=== PATIENT | female | born 1985 | race Asian ===

== ENCOUNTER → 2023-05-23 13:40 | Outpatient (REF) | payer OTHER, SELFPAY | LOC: HWRAD 13:40 | PROVIDERS: ATTENDING PHYSICIAN Obstetrics & Gynecology | DX: O12.10 Gestational proteinuria, unspecified trimester (principal) | CPT/HCPCS: 76770 ==

== ENCOUNTER 2023-05-31 12:07 | Observation (INO) | payer OTHER, SELFPAY ==
[2023-05-31 12:53] LABS: % Basophils 0.5 % (0-2); % Eosinophils 0.3 % (0-6); % Immature Granulocytes 0.7 % (0-0.5); % Lymphocytes 20.4 % (20.5-51.1); % Monocytes 5.1 % (1.7-9.3); Absolute Basophils 0.1 10^3/uL (0-0.2); Absolute Immature Granulocytes 0.1 10^3/uL (0-0.05); Absolute Lymphocytes 2.2 10^3/uL (1.2-3.4); Absolute Monocytes 0.6 10^3/uL (0.1-0.6); Absolute Neutrophils 7.8 10^3/uL (1.4-6.5); Hematocrit 34.6 % (37.0-47.0); Hemoglobin 11.8 g/dL (12.0-16.0); Mean Corp Hgb Conc. 34.1 g/dL (33.0-37.0); Mean Corpuscular Volume 93.8 fL (81.0-99.0); Mean Platelet Volume 9.1 fL (7.4-10.4); Nucleated Red Blood Cells % 0 %; Platelet Count 286 10^3/uL (130-400); Red Blood Cell Count 3.69 10^6/uL (4.20-5.40); Red Cell Dist. Width 12.6 % (11.5-14.5); White Blood Cell Count 10.7 10^3/uL (4.8-10.8)
[2023-05-31 13:45] LABS: ALT (SGPT) 23 U/L (0-35); AST (SGOT) 22 U/L (14-36); Albumin 4.4 g/dl (3.5-5.0); Alkaline Phosphatase 89 U/L (38-126); Blood Urea Nitrogen 6 mg/dl (7-17); Calcium 9.6 mg/dl (8.4-10.2); Carbon Dioxide 22 mmol/L (22-30); Chloride 103 mmol/L (98-107); Glucose 83 mg/dl (70-99); Potassium 3.8 mmol/L (3.5-5.1); Sodium 132 mmol/L (135-145); Total Bilirubin 0.4 mg/dl (0.2-1.3); Total Protein 7.9 g/dl (6.3-8.2); eGFR > 60.00
[2023-05-31 13:57] VITALS: BP 116/59; BMI 32.1
[2023-05-31 13:58] LABS: Protein/creatinine Ratio 1.9; Urine Protein 14 mg/dl
== END 2023-05-31 14:57 | disposition home or self-care (01) ==
LOC: LDRP 12:07
PROVIDERS: Obstetrics & Gynecology; ADMITTING PHYSICIAN Obstetrics & Gynecology
DX: O14.02 Mild to moderate pre-eclampsia, second trimester (principal); Z3A.23 23 weeks gestation of pregnancy; O99.212 Obesity complicating pregnancy, second trimester; E66.9 Obesity, unspecified; O09.522 Supervision of elderly multigravida, second trimester
CPT/HCPCS: 80053; 82570; 84156; 85025; G0378

== ENCOUNTER → 2023-06-10 06:58 | Outpatient (REF) | payer OTHER, SELFPAY | LOC: PNTC 06:58 | PROVIDERS: ATTENDING PHYSICIAN Obstetrics & Gynecology | DX: Z87.410 Personal history of cervical dysplasia (principal); O09.529 Supervision of elderly multigravida, unspecified trimester; O99.210 Obesity complicating pregnancy, unspecified trimester | CPT/HCPCS: 76816; 76817 ==

== ENCOUNTER 2023-06-19 01:53 | Observation (INO) | payer OTHER, SELFPAY ==
[2023-06-19 02:01] VITALS: BMI 32.1
[2023-06-19 02:02] VITALS: BP 115/74
== END 2023-06-19 03:05 | disposition home or self-care (01) ==
LOC: LDRP 01:53
PROVIDERS: ADMITTING PHYSICIAN Obstetrics & Gynecology
DX: O36.8130 Decreased fetal movements, third trimester, not applicable or unspecified (principal); Z3A.26 26 weeks gestation of pregnancy
CPT/HCPCS: G0378

== ENCOUNTER → 2023-06-19 11:09 | Outpatient (REF) | payer OTHER, SELFPAY | LOC: PNTC 11:09 | PROVIDERS: ATTENDING PHYSICIAN Obstetrics & Gynecology | DX: O36.8190 Decreased fetal movements, unspecified trimester, not applicable or unspecified (principal) | CPT/HCPCS: 59025; 76818 ==

== ENCOUNTER 2023-06-22 20:04 | Observation (INO) | payer OTHER, SELFPAY ==
[2023-06-22 20:25] VITALS: BP 123/73; BMI 32.1
[2023-06-22 20:51] LABS: % Basophils 0.5 % (0-2); % Eosinophils 0.4 % (0-6); % Immature Granulocytes 0.8 % (0-0.5); % Lymphocytes 24.2 % (20.5-51.1); % Monocytes 5.7 % (1.7-9.3); % Neutrophils 68.4 % (42.2-75.2); Absolute Basophils 0.1 10^3/uL (0-0.2); Absolute Eosinophils 0.1 10^3/uL (0-0.7); Absolute Immature Granulocytes 0.1 10^3/uL (0-0.05); Absolute Lymphocytes 3.2 10^3/uL (1.2-3.4); Absolute Monocytes 0.8 10^3/uL (0.1-0.6); Hemoglobin 11.5 g/dL (12.0-16.0); Mean Corp Hgb Conc. 34.8 g/dL (33.0-37.0); Mean Corpuscular Hgb 31.7 pg (27.0-31.0); Mean Corpuscular Volume 90.9 fL (81.0-99.0); Mean Platelet Volume 9.2 fL (7.4-10.4); Nucleated Red Blood Cells % 0 %; Platelet Count 321 10^3/uL (130-400); Red Blood Cell Count 3.63 10^6/uL (4.20-5.40); Red Cell Dist. Width 12.6 % (11.5-14.5); White Blood Cell Count 13.2 10^3/uL (4.8-10.8)
[2023-06-22 21:05] LABS: ALT (SGPT) 25 U/L (0-35); AST (SGOT) 22 U/L (14-36); Albumin 4.5 g/dl (3.5-5.0); Alkaline Phosphatase 112 U/L (38-126); Blood Urea Nitrogen 8 mg/dl (7-17); Calcium 9.8 mg/dl (8.4-10.2); Carbon Dioxide 23 mmol/L (22-30); Chloride 104 mmol/L (98-107); Estimated Creatinine Clearance > 125 ml/min; Glucose 94 mg/dl (70-99); Potassium 3.8 mmol/L (3.5-5.1); Sodium 133 mmol/L (135-145); Total Bilirubin 0.3 mg/dl (0.2-1.3); Total Protein 8.1 g/dl (6.3-8.2); eGFR > 60.00
[2023-06-22 21:20] LABS: Urine Protein 15 mg/dl
[2023-06-22 21:33] LABS: Protein/creatinine Ratio 1.8
== END 2023-06-22 21:30 | disposition home or self-care (01) ==
LOC: LDRP 20:04
PROVIDERS: ADMITTING PHYSICIAN Obstetrics & Gynecology
DX: O13.2 Gestational [pregnancy-induced] hypertension without significant proteinuria, second trimester (principal); Z3A.26 26 weeks gestation of pregnancy; O09.522 Supervision of elderly multigravida, second trimester; O99.212 Obesity complicating pregnancy, second trimester
CPT/HCPCS: 80053; 82570; 84156; 85025; G0378

== ENCOUNTER 2023-06-27 18:29 | Observation (INO) | payer OTHER, SELFPAY ==
[2023-06-27 19:08] VITALS: BP 119/72; BMI 32.4
== END 2023-06-27 19:51 | disposition home or self-care (01) ==
LOC: LDRP 18:29
PROVIDERS: ADMITTING PHYSICIAN Obstetrics & Gynecology
DX: O36.8120 Decreased fetal movements, second trimester, not applicable or unspecified (principal); O26.892 Other specified pregnancy related conditions, second trimester; R03.0 Elevated blood-pressure reading, without diagnosis of hypertension; Z3A.27 27 weeks gestation of pregnancy
CPT/HCPCS: G0378

== ENCOUNTER → 2023-07-01 16:53 | Outpatient (REF) | payer OTHER, SELFPAY | LOC: PNTC 16:53 | PROVIDERS: ATTENDING PHYSICIAN Obstetrics & Gynecology | DX: O13.9 Gestational [pregnancy-induced] hypertension without significant proteinuria, unspecified trimester (principal) | CPT/HCPCS: 59025 ==

== ENCOUNTER → 2023-07-04 06:51 | Outpatient (REF) | payer OTHER, SELFPAY | LOC: PNTC 06:51 | PROVIDERS: ATTENDING PHYSICIAN Obstetrics & Gynecology | DX: O13.9 Gestational [pregnancy-induced] hypertension without significant proteinuria, unspecified trimester (principal) | CPT/HCPCS: 59025; 76818 ==

== ENCOUNTER 2023-07-07 18:07 | Observation (INO) | payer OTHER, SELFPAY ==
[2023-07-07 18:11] VITALS: BP 145/79; BMI 32.6
[2023-07-07] MEDS: TRANDATE 100 MG PO (18:33)
== END 2023-07-07 19:30 | disposition home or self-care (01) ==
LOC: LDRP 18:07
PROVIDERS: ADMITTING PHYSICIAN Obstetrics & Gynecology
DX: O36.8130 Decreased fetal movements, third trimester, not applicable or unspecified (principal); Z3A.28 28 weeks gestation of pregnancy; O09.523 Supervision of elderly multigravida, third trimester; O99.213 Obesity complicating pregnancy, third trimester
CPT/HCPCS: 76815; G0378

== ENCOUNTER → 2023-07-08 07:07 | Outpatient (REF) | payer OTHER, SELFPAY | LOC: PNTC 07:07 | PROVIDERS: ATTENDING PHYSICIAN Obstetrics & Gynecology | DX: O13.9 Gestational [pregnancy-induced] hypertension without significant proteinuria, unspecified trimester (principal) | CPT/HCPCS: 59025; 76816; 76818 ==

== ENCOUNTER → 2023-07-11 08:07 | Outpatient (REF) | payer OTHER, SELFPAY | LOC: PNTC 08:07 | PROVIDERS: ATTENDING PHYSICIAN Obstetrics & Gynecology | DX: O13.9 Gestational [pregnancy-induced] hypertension without significant proteinuria, unspecified trimester (principal) | CPT/HCPCS: 59025; 76818 ==

== ENCOUNTER → 2023-07-15 09:03 | Outpatient (REF) | payer OTHER, SELFPAY | LOC: PNTC 09:03 | PROVIDERS: ATTENDING PHYSICIAN Obstetrics & Gynecology | DX: O13.9 Gestational [pregnancy-induced] hypertension without significant proteinuria, unspecified trimester (principal) | CPT/HCPCS: 59025; 76818 ==

== ENCOUNTER 2023-07-15 19:38 | Emergency (ER) | payer OTHER, SELFPAY ==
[2023-07-15 19:39] VITALS: BP 142/108
[2023-07-15 20:01] LABS: % Basophils 0.5 % (0-2); % Eosinophils 0.6 % (0-6); % Monocytes 6.1 % (1.7-9.3); % Neutrophils 66.8 % (42.2-75.2); Absolute Basophils 0.1 10^3/uL (0-0.2); Absolute Eosinophils 0.1 10^3/uL (0-0.7); Absolute Immature Granulocytes 0.1 10^3/uL (0-0.05); Absolute Lymphocytes 2.7 10^3/uL (1.2-3.4); Absolute Monocytes 0.7 10^3/uL (0.1-0.6); Absolute Neutrophils 7.3 10^3/uL (1.4-6.5); Hematocrit 33.5 % (37.0-47.0); Hemoglobin 11.1 g/dL (12.0-16.0); Mean Corp Hgb Conc. 33.1 g/dL (33.0-37.0); Mean Corpuscular Hgb 31.6 pg (27.0-31.0); Mean Corpuscular Volume 95.4 fL (81.0-99.0); Mean Platelet Volume 8.9 fL (7.4-10.4); Nucleated Red Blood Cells % 0 %; Platelet Count 283 10^3/uL (130-400); Red Blood Cell Count 3.51 10^6/uL (4.20-5.40); Red Cell Dist. Width 12.8 % (11.5-14.5)
[2023-07-15 20:19] LABS: ALT (SGPT) 23 U/L (0-35); AST (SGOT) 20 U/L (14-36); Albumin 3.7 g/dl (3.5-5.0); Alkaline Phosphatase 109 U/L (38-126); Blood Urea Nitrogen 8 mg/dl (7-17); Calcium 9.2 mg/dl (8.4-10.2); Carbon Dioxide 21 mmol/L (22-30); Chloride 103 mmol/L (98-107); Glucose 110 mg/dl (70-99); Potassium 3.9 mmol/L (3.5-5.1); Sodium 133 mmol/L (135-145); Total Bilirubin 0.1 mg/dl (0.2-1.3); Total Protein 6.9 g/dl (6.3-8.2); eGFR > 60.00
[2023-07-15 21:12] VITALS: BMI 33.6
--- NOTE | 2023-07-15 21:34 | ED.GENMED ---
History of Present Illness
General
Chief Complaint: Breathing Problem
Source: patient and family
Exam Limitations: none
Time Seen by Provider: 07/15/23 20:49
Travel History
Have you had any contact with someone who has COVID-19?: No
Do you have any symptoms of coronavirus? Fever > 100 degrees, chills, cough, shortness of breath, sore throat, loss of taste or smell, muscle aches, or headache?: No
History of Present Illness
History of Present Illness:
37-year-old female, G2, P0, 30 weeks presents with shortness of breath. Started this morning in the shower. Then resolved but recurred again later this afternoon. Still has some mild tightness in her throat with this. No pleuritic pain.
She did have some left mid back pain the last 3 to 4 days. No fever no other complaints. Patient has a history of preeclampsia with nephrotic range proteinuria and hypertension. Is on labetalol 100 mg twice daily.
Past History
Past History
ED Past Medical History: HTN
ED Past Surgical History: Other ([facility] biopsy)
Social History
Tobacco: Non-smoker
Alcohol: None
Drug: None
Personal:
Living: with family
Employment: Employed
Family History
Family History: Hypertension
Review of Systems
Review of Systems
All Other Systems: Not applicable
Constitutional: Denies fever
Cardiac: Denies palpitations or syncope
ABD/GI: Reports no symptoms
: Reports no symptoms
Phy Exam
Physical Exam
Physical Exam:
GENERAL: Alert and oriented in no apparent distress
EYE: Orbits normal.
NECK: Supple
CARDIAC: Regular rate and rhythm without any obvious murmurs.
LUNGS: Clear breath sounds,normal
ABDOMEN: Soft, typical 30-week lower abdomen. Nontender.
NEUROLOGICAL: Alert and oriented , grossly non-focal
SKIN: Warm and dry, no rash or lesion, no discoloration, skin intact.
MUSCULOSKELETAL: No edema,no deformity.Good color
PSYCH: Normal and appropriate interaction.
Course
Orders/Labs/Results
Orders:
Orders
07/15/23 19:44
Electrocardiogram (*1) Urgent
Reason for Study: Shortness of Breath
EKG- Treatment ONCE
07/15/23 19:53
CMP [Comprehensive Metabolic Panel] Urgent
Complete Blood Count/With Diff Urgent
HCG, Beta Quantitative [Beta HCG Quantitative] Urgent
Is this a screen?: No
07/15/23 21:20
Troponin I Urgent
Urinalysis Reflex To Culture Urgent
Date Specimen was Collected: 07/15/23
Time Specimen was Collected: 21:18
Urine Microscopic Reflex Cult Urgent
07/15/23 21:25
CT Chest Pe Study Urgent
Comment:
Reason For Exam: Short of breath/left pleuritic back pain
07/15/23 23:15
Electrocardiogram (*1) Stat
Reason for Study: Other
Other Reason for Exam: chest pain
EKG- Treatment ONCE
07/15/23 23:30
Troponin I Urgent
Abnormal Lab Results
07/15/23 07/15/23
19:53 21:20
WBC 11.0 H 10^3/uL
(4.8-10.8)
RBC 3.51 L 10^6/uL
(4.20-5.40)
Hgb 11.1 L g/dL
(12.0-16.0)
Hct 33.5 L %
(37.0-47.0)
MCH 31.6 H pg
(27.0-31.0)
Abs Immat Gran (auto) 0.1 H 10^3/uL
(0-0.05)
Absolute Neuts (auto) 7.3 H 10^3/uL
(1.4-6.5)
Absolute Monos (auto) 0.7 H 10^3/uL
(0.1-0.6)
Immature Gran % 1.0 H %
(0-0.5)
Sodium 133 L mmol/L
(135-145)
Carbon Dioxide 21 L mmol/L
(22-30)
Creatinine 0.5 L mg/dL
(0.6-1.0)
Glucose 110 H mg/dl
(70-99)
Total Bilirubin 0.1 L mg/dl
(0.2-1.3)
Ur Occult Blood Reflex 1+ A
(Negative)
Urine RBC 7-10 A /HPF
(0-2)
Urine Bacteria (Reflex) Few A
(Negative)
07/15/23 19:53
07/15/23 19:53
Vital Signs
Initial and Last Documented VS:
Initial Vital Signs
Temp Pulse Resp BP Pulse Ox
99.2 F 100 24 142/108 100
07/15/23 19:39 07/15/23 19:39 07/15/23 19:39 07/15/23 19:39 07/15/23 19:39
Last Documented Vital Signs
Temp Pulse Resp BP Pulse Ox
99.2 F 100 24 142/108 100
07/15/23 19:39 07/15/23 19:39 07/15/23 19:39 07/15/23 19:39 07/15/23 20:58
*Radiology
Radiology exam reviewed: radiology read reviewed (CT negative)
*Pulse Oximetry
Patient hypoxic: no
*EKG
Interpreted by ED Provider?: Yes
Interpretation: abnormal
Comparison EKG: no changes
Heart Rate: 81
Rate: normal
Rhythm: sinus
[place]: normal axis
Interval: normal interval
QRS Pattern: normal QRS
Ischemia: T-wave inversion
*Critical Care Note
Total Time (30-74mins, 75-104mins- exclusive of procedures): Not Applicable
Update Note
Update Note:
Patient is remained stable. From a preeclampsia standpoint last blood pressures 120s over 75. Although initial blood pressure with significant diastolic hypertension. EKG with nonspecific changes but they are seen on old EKG with a normal
echocardiogram. Troponin is negative. These will be repeated shortly for completeness. CT scan of the chest negative. Discussed with OB. Patient will be set up for monitoring.
ED Attending Note
-
Portions of this chart may have been created with voice recognition software.� Occasional wrong word or��sound alike� substitutions may have occurred due to the inherent limitations of voice recognition software.
Discharge Plan
Departure
Patient Disposition: LDRP
Date of Disposition: 07/15/23
Time of Disposition: 23:16
Presentation/result/management discussed w/ accepting MD/DO: MOBILITY SPECIALIST
Discharge Problem:
Dyspnea, History of preeclampsia, 30-week
Prescriptions:
No Action
28-800 mg-mcg Tablet
1 tab PO DAILY
aspirin 81 mg Tablet
81 mg PO DAILY
magnesium 250 mg Tablet
250 mg PO DAILY
ferrous sulfate [FeroSul] 325 mg (65 mg iron) tablet
325 mg PO DAILY
labetalol 100 mg Tablet
100 mg PO BID
Referrals:
Melissa Calderón DO [Family Provider] -
Interventions
Interventions:
*Risk Screen - Suicide Last Done: 07/15/23 19:39
*General Assessment Last Done: 07/15/23 20:58
*Neglect/Abuse Screening Last Done: 07/15/23 19:39
ED- Fall Risk Assessment Last Done: 07/15/23 20:58
*ED COVID-19 Vaccine History Last Done: 07/15/23 20:58
*Nursing Disposition Last Done: 07/16/23 00:30
ED- Cardiac Assessment Last Done: 07/15/23 20:58
ED-EENT Assessment Last Done: 07/15/23 20:58
ED-Female Genitourinary Assessment Last Done: 07/15/23 20:58
ED- Pulmonary Assessment Last Done: 07/15/23 20:58
Discharge Date and Time
Discharge Date/Time: 07/16/23 00:30
[2023-07-15 21:43] LABS: Urine Albumin Negative (Neg - Trace); Urine Bilirubin Negative (Negative); Urine Character Clear (Clear); Urine Color Yellow; Urine Glucose Negative (Negative); Urine Ketone Negative (Negative); Urine Leukocyte Negative (Negative); Urine Nitrite Negative (Negative); Urine Occult Blood 1+ (Negative); Urine Specific Gravity 1.005 (<1.030); Urine Urobilinogen Negative (Neg - 1+)
[2023-07-15 21:50] LABS: Urine Bacteria Few (Negative); Urine Squamous Cell 26-30 /LPF (Few); Urine White Cell 0-2 /HPF (0-5)
[2023-07-15 22:07] LABS: Troponin I < 0.012 ng/ml
[2023-07-16 00:21] LABS: Troponin I < 0.012 ng/ml
== END 2023-07-16 00:30 ==
LOC: EMR 19:38
PROVIDERS: Emergency Medicine; EMERGENCY PHYSICIAN Emergency Medicine; FAMILY PHYSICIAN Obstetrics & Gynecology
DX: O99.891 Other specified diseases and conditions complicating pregnancy (principal); R06.00 Dyspnea, unspecified; O10.913 Unspecified pre-existing hypertension complicating pregnancy, third trimester; Z3A.30 30 weeks gestation of pregnancy; Z79.899 Other long term (current) drug therapy; Z82.49 Family history of ischemic heart disease and other diseases of the circulatory system
CPT/HCPCS: 99284; 71275; 80053; 81003; 81015; 84484; 84702; 85025; 93005; Q9967

== ENCOUNTER 2023-07-16 00:24 | Observation (INO) | payer OTHER, SELFPAY ==
[2023-07-16 00:49] VITALS: BMI 33.3
[2023-07-16 00:53] VITALS: BP 131/80
--- NOTE | 2023-07-16 02:22 | PTCARENOTE ---
Pt. placed on telemetry monitoring per orders. Monitoring from ICU (room 3357 on tele monitor). NSR with infrequent PVCs noted on tele, HR 70s-80s. Pt. for Q2hr BP checks per LDRP RN. On RA, lungs CTA. No SOB, chest palpitations, chest pain,
increased swelling or any other complaints per patient. Pt. resting comfortably. Encouraged to call RN with any changes. Monitoring
--- NOTE | 2023-07-16 07:02 | PTCARENOTE ---
No changes in assessment this AM. Pt without complaints. Remain NSR HR 70s.
[2023-07-16] MEDS: TRANDATE 100 MG PO (08:15)
[2023-07-16] MEDS: TRANDATE PO (08:16)
--- NOTE | 2023-07-16 08:49 | PTCARENOTE ---
Went to check on pt who was sitting in bed eating breakfast. BP 118/77. Hr 80s, SR, first degree heart block. Had just been given am labetaolol. Pt denies sob, cp/tightness. Pt reports anxiety over stressing family out. Pt encouraged to
de-stress as this could increase hr/bp. Recommended trying massage, deep breathing. Family at bedside. No changes in plan at this time.
--- NOTE | 2023-07-16 09:06 | CON.CAR ---
Addendum entered and electronically signed by Josh Hernandez MD 07/16/23 11:09:
37-year-old woman who is is a 30 clinical . She has a history of hypertension and has had proteinuria. Patient has been followed by nephrology and is maintained on labetalol. Patient had some issues with palpitations and also was noted
to have hypertension. Previously seen back in April by Dr. Winn. Echocardiogram at that time showed normal left ventricular function. Patient states that since she has been maintained on labetalol the palpitations have not been an issue.
Recently she was evaluated in the ER due to shortness of breath. She felt like she had 2 episodes yesterday both which last about 20 minutes. At least one of the episodes occurred during or shortly after taking a shower. No other associated
symptoms. She was not having symptoms when she was evaluated in the ER. Evaluation including CT scan with PE protocol was unremarkable. Patient is currently comfortable in no distress and not complaining of shortness of breath. No significant
arrhythmias by ECG or telemetry exact cause of symptoms is unclear. ECG shows sinus rhythm with nonspecific T wave abnormality which is unchanged from the study in April. No clear cardiac cause of symptoms at this time. Patient had an
echocardiogram in April which showed normal left ventricular function. Last study was 8 weeks ago. Will repeat echocardiogram. If this study is unchanged from the previous study then no additional testing would be recommended.
Patient will need to continue to follow-up with nephrology and [facility] regarding hypertension and proteinuria
Original Note:
Consultation
Consultation Request
Date/Time Consultation Requested: 07/16/23 08:20
Date/Time Consultation Performed: 07/16/23 09:00
Requesting Provider: Dr. Mullins
Performing Provider: PAYTON Mcghee for Dr. Hernandez
Reason for Consultation: Abnormal EKG
Medical History
-
Chief Complaint: Shortness of breath
History of Present Illness:
Tessy Lay is a 37 year old female (known to Dr. Winn), with proteinuria (managed by Nephrology) and HTN presented to the ER with shortness of breath. Her shortness of breath initially started yesterday morning. She was in the
shower but states it was not particularly hot nor steamy. Her shortness of breath persisted into the morning. She had an OB appointment but felt fine when she arrived there. However, on her way there she had to drive with the windows down because
she felt like she could not get enough air. She states it is similar to being in high altitude. It does not get worse with exertional activities. It does not get worse laying flat. She took a nap yesterday and did not wake up short of breath.
However briefly after her nap she was short of breath. She is not having any chest pain.
Past Medical History
Past Medical History: HTN
Social History
Tobacco: Non-Smoker
Alcohol: None
Drug: None
Personal:
Living: With Family
Employment: Not Employed
Family History
Family History: Reviewed & Not Pertinent
Allergies / Home Medications
Allergy/AdvReac Type Severity Reaction Status Date / Time
No Known Allergies Allergy Verified 07/15/23 19:43
Medication Instructions Recorded Confirmed Type
vit no.133-ferrous 1 tab PO DAILY Supplement 10/18/22 07/16/23 History
fumarate 28 mg-folic acid 800 mcg
tablet ()
aspirin 81 mg tablet 81 mg PO DAILY Blood Clot 05/13/23 07/16/23 History
Prevention/Tx
magnesium 250 mg tablet 250 mg PO DAILY Supplement 05/31/23 07/16/23 History
ferrous sulfate 325 mg (65 mg 325 mg PO DAILY Supplement 06/23/23 07/16/23 History
iron) tablet (FeroSul)
labetalol 100 mg tablet 100 mg PO BID Blood Pressure 06/27/23 07/16/23 History
Review of Systems
-
History Source: Patient
All other systems: Negative unless noted
EENT: No Symptoms
Respiratory: No Symptoms
Cardiac: No Symptoms
Physical Exam
Vital Signs
Temp Pulse Resp BP
98.1 F 88 18 118/77
07/16/23 00:53 07/16/23 08:15 07/16/23 00:53 07/16/23 08:15
Physical Exam
General: Well Developed, Well Nourished, No Apparent Distress and Comfortable
HEENT: Normocephalic, Anicteric and Moist Mucous Membranes
Respiratory: Clear and Non Labored Respirations
Cardiac: S1/S2, Regular Rhythm and Peripheral Edema (trace ankle edema)
Breast: Deferred by me
GI: Other (gravid)
Rectal: Deferred by Provider
Genito-urinary: No Costovertebral Tender
Musculoskeletal: No Clubbing and No Cyanosis
Skin: Warm and Dry
Neuro: AO x 3
Hematologic/Lymphatic: No Lymphadenopathy
Psych: Calm
Impression / Plan
-
Shortness of breath, resolved
-CT without PE, dissection, & pleural effusion
-Update echocardiogram to rule out cardiomyopathy
HTN with proteinuria, managed by OB & Nephrology
Abnormal EKG, this appears to be her baseline compared to prior EKG
Data Reviewed
-
EKG: Report Reviewed by me (Sinus arrhythmia, T wave abnormality, rate 81)
CT Scan: Report Reviewed by me (CT PE: There is no pulmonary embolism. There is no aortic dissection. There is no pneumothorax.)
Labs: Labs Reviewed by me
Old Records: Reviewed
--- NOTE | 2023-07-16 12:57 | W.PN.UPDATE ---
Update Note
Progress Note Update
echo shows normal let ventricular function. No significant valve disease detected.
No addtional cardiac testing recommended at this time.
Call if additonal assistance required.
== END 2023-07-16 14:15 | disposition home or self-care (01) ==
LOC: LDRP 00:24
PROVIDERS: ADMITTING PHYSICIAN Obstetrics & Gynecology; OTHER PHYSICIAN Internal Medicine Cardiovascular Disease
DX: R06.02 Shortness of breath (principal); O12.13 Gestational proteinuria, third trimester; O10.013 Pre-existing essential hypertension complicating pregnancy, third trimester; R94.31 Abnormal electrocardiogram [ECG] [EKG]; O09.523 Supervision of elderly multigravida, third trimester; Z3A.29 29 weeks gestation of pregnancy; O99.213 Obesity complicating pregnancy, third trimester; O99.413 Diseases of the circulatory system complicating pregnancy, third trimester
CPT/HCPCS: 93308; 93321; 93325; G0378

== ENCOUNTER → 2023-07-18 14:33 | Outpatient (REF) | payer OTHER, SELFPAY | LOC: PNTC 14:33 | PROVIDERS: ATTENDING PHYSICIAN Obstetrics & Gynecology | DX: O13.9 Gestational [pregnancy-induced] hypertension without significant proteinuria, unspecified trimester (principal) | CPT/HCPCS: 59025; 76818 ==

== ENCOUNTER → 2023-07-22 10:32 | Outpatient (REF) | payer OTHER, SELFPAY | LOC: PNTC 10:32 | PROVIDERS: ATTENDING PHYSICIAN Obstetrics & Gynecology | DX: O13.9 Gestational [pregnancy-induced] hypertension without significant proteinuria, unspecified trimester (principal) | CPT/HCPCS: 59025; 76818 ==

== ENCOUNTER → 2023-07-25 07:42 | Outpatient (REF) | payer OTHER, SELFPAY | LOC: PNTC 07:42 | PROVIDERS: ATTENDING PHYSICIAN Obstetrics & Gynecology | DX: O13.9 Gestational [pregnancy-induced] hypertension without significant proteinuria, unspecified trimester (principal) | CPT/HCPCS: 59025; 76818 ==

== ENCOUNTER → 2023-07-29 07:06 | Outpatient (REF) | payer OTHER, SELFPAY | LOC: PNTC 07:06 | PROVIDERS: ATTENDING PHYSICIAN Obstetrics & Gynecology | DX: O13.9 Gestational [pregnancy-induced] hypertension without significant proteinuria, unspecified trimester (principal) | CPT/HCPCS: 59025; 76818 ==

== ENCOUNTER → 2023-08-01 07:06 | Outpatient (REF) | payer OTHER, SELFPAY | LOC: PNTC 07:06 | PROVIDERS: ATTENDING PHYSICIAN Obstetrics & Gynecology | DX: O13.9 Gestational [pregnancy-induced] hypertension without significant proteinuria, unspecified trimester (principal); O99.210 Obesity complicating pregnancy, unspecified trimester; O09.529 Supervision of elderly multigravida, unspecified trimester; O36.8390 Maternal care for abnormalities of the fetal heart rate or rhythm, unspecified trimester, not applicable or unspecified | CPT/HCPCS: 59025; 76816; 76818 ==

== ENCOUNTER 2023-08-02 18:15 | Observation (INO) | payer OTHER, SELFPAY ==
[2023-08-02 18:28] VITALS: BP 132/85; BMI 33.6
== END 2023-08-02 20:15 | disposition home or self-care (01) ==
LOC: LDRP 18:15
PROVIDERS: ADMITTING PHYSICIAN Obstetrics & Gynecology
DX: O36.8130 Decreased fetal movements, third trimester, not applicable or unspecified (principal); Z3A.32 32 weeks gestation of pregnancy

== ENCOUNTER → 2023-08-05 07:32 | Outpatient (REF) | payer OTHER, SELFPAY | LOC: PNTC 07:32 | PROVIDERS: ATTENDING PHYSICIAN Obstetrics & Gynecology | DX: O13.9 Gestational [pregnancy-induced] hypertension without significant proteinuria, unspecified trimester (principal) | CPT/HCPCS: 76818 ==

== ENCOUNTER → 2023-08-08 07:07 | Outpatient (REF) | payer OTHER, SELFPAY | LOC: PNTC 07:07 | PROVIDERS: ATTENDING PHYSICIAN Obstetrics & Gynecology | DX: O13.9 Gestational [pregnancy-induced] hypertension without significant proteinuria, unspecified trimester (principal); O99.210 Obesity complicating pregnancy, unspecified trimester; O09.529 Supervision of elderly multigravida, unspecified trimester; O36.8390 Maternal care for abnormalities of the fetal heart rate or rhythm, unspecified trimester, not applicable or unspecified | CPT/HCPCS: 59025; 76818 ==

== ENCOUNTER → 2023-08-12 08:00 | Outpatient (REF) | payer OTHER, SELFPAY | LOC: PNTC 08:00 | PROVIDERS: ATTENDING PHYSICIAN Obstetrics & Gynecology | DX: O13.9 Gestational [pregnancy-induced] hypertension without significant proteinuria, unspecified trimester (principal); O99.210 Obesity complicating pregnancy, unspecified trimester; O09.529 Supervision of elderly multigravida, unspecified trimester | CPT/HCPCS: 76818 ==

== ENCOUNTER 2023-08-15 08:31 | Observation (INO) | payer OTHER, SELFPAY ==
[2023-08-15 10:32] VITALS: BP 139/78; BMI 34.1
== END 2023-08-15 13:55 | disposition home or self-care (01) ==
LOC: PNTC-IN 08:31
PROVIDERS: ADMITTING PHYSICIAN Obstetrics & Gynecology; ATTENDING PHYSICIAN Obstetrics & Gynecology
DX: O36.8130 Decreased fetal movements, third trimester, not applicable or unspecified (principal); Z3A.32 32 weeks gestation of pregnancy; O99.213 Obesity complicating pregnancy, third trimester; O09.523 Supervision of elderly multigravida, third trimester; O10.013 Pre-existing essential hypertension complicating pregnancy, third trimester
CPT/HCPCS: 59025; 76818; G0378

== ENCOUNTER 2023-08-16 18:19 | Observation (INO) | payer OTHER, SELFPAY ==
[2023-08-16 18:37] VITALS: BP 154/98; BMI 35.4
[2023-08-16 19:01] LABS: Hematocrit 31.8 % (37.0-47.0); Hemoglobin 10.8 g/dL (12.0-16.0); Mean Corpuscular Volume 91.4 fL (81.0-99.0); Mean Platelet Volume 9.4 fL (7.4-10.4); Platelet Count 250 10^3/uL (130-400); Red Blood Cell Count 3.48 10^6/uL (4.20-5.40); Red Cell Dist. Width 13.1 % (11.5-14.5); White Blood Cell Count 11.2 10^3/uL (4.8-10.8)
[2023-08-16] MEDS: TRANDATE 100 MG PO (19:18)
[2023-08-16 19:23] LABS: ALT (SGPT) 19 U/L (0-35); AST (SGOT) 19 U/L (14-36); Albumin 3.5 g/dl (3.5-5.0); Alkaline Phosphatase 120 U/L (38-126); Blood Urea Nitrogen 9 mg/dl (7-17); Calcium 9.7 mg/dl (8.4-10.2); Carbon Dioxide 23 mmol/L (22-30); Chloride 106 mmol/L (98-107); Estimated Creatinine Clearance > 125 ml/min; Glucose 111 mg/dl (70-99); Sodium 132 mmol/L (135-145); Total Bilirubin 0.2 mg/dl (0.2-1.3); Total Protein 6.5 g/dl (6.3-8.2); eGFR > 60.00
== END 2023-08-16 20:15 | disposition home or self-care (01) ==
LOC: LDRP 18:19
PROVIDERS: ADMITTING PHYSICIAN Obstetrics & Gynecology
DX: O36.8130 Decreased fetal movements, third trimester, not applicable or unspecified (principal); Z3A.34 34 weeks gestation of pregnancy; O10.013 Pre-existing essential hypertension complicating pregnancy, third trimester; O09.523 Supervision of elderly multigravida, third trimester; O99.213 Obesity complicating pregnancy, third trimester
CPT/HCPCS: 59025; 76819; 80053; 85027; G0378

== ENCOUNTER → 2023-08-19 10:31 | Outpatient (REF) | payer OTHER, SELFPAY | LOC: PNTC 10:31 | PROVIDERS: ATTENDING PHYSICIAN Obstetrics & Gynecology | DX: O13.9 Gestational [pregnancy-induced] hypertension without significant proteinuria, unspecified trimester (principal); O99.210 Obesity complicating pregnancy, unspecified trimester; O09.529 Supervision of elderly multigravida, unspecified trimester | CPT/HCPCS: 59025; 76818 ==

== ENCOUNTER → 2023-08-20 13:06 | Outpatient (REF) | payer OTHER, SELFPAY | LOC: HWRAD 13:06 | PROVIDERS: ATTENDING PHYSICIAN Obstetrics & Gynecology | DX: R29.91 Unspecified symptoms and signs involving the musculoskeletal system (principal) | CPT/HCPCS: 76770 ==

== ENCOUNTER 2023-08-21 14:07 | Inpatient (IN) | payer OTHER, SELFPAY ==
[2023-08-21 12:02] VITALS: BP 145/84; BMI 35.6
--- NOTE | 2023-08-21 14:06 | CON.NEO ---
Consultation
-
Date/Time Consultation Requested: 08/20 1200
Date/Time Consultation Performed: 08/20 1300
Requesting Provider: Dr Otero
Performing Provider: tiffany Jackson
Reason for Consultation: Induction at 35 wks for BPP 07/30
Consultation - Neonatology
Maternal Labs
Blood Type: B Positive
Antibody Screen: Negative
RPR: Nonreactive
Rubella: Immune
Hep B S Ag: Negative
Hep C: Negative
HIV: Nonreactive
Group B Strep: Unknown
Chlamydia/GC: Negative
Consult
37 year old with h/p chronic Hypertension, on labetolol since 07/13 having weekly BPP done and showed 07/28 0 for tone and movement. admitted for induction at 35 wks with cytotec.
Points discussed at consult:
- Management at delivery including the possibility of CPAP/intubation/surfactant discussed
- Respiratory: RDS possibility with possibility of worsening for 24-48 hrs, management including CPAP/surfactant/ventilator support may be required
- Nutrition: Hypoglycemia, need for IV fluids, gradual feed advance, Gavage feeding, importance of colostrum feeding, initiation of expression of colostrum within 3-4 hours, availability of donor milk, safety fo donor milk etc. were discussed.
- Procedures: Intubation, CPAP, IV placement, blood tests, umbilical arterial or venous lines, gavage feedings were discussed
- CVS: possibility of PDA not discussed in detail at this time
- TIEDOWN OPERATOR: Rare possibility of IVH and need for head US, grading of IVH and long term care administrator effects of Grade III/IV although extremely rare at >32 weeks were discussed
- Jaundice possibility and need for phototherapy discussed
- Family Centered Care: Discussed FCC with emphasis on parental participation during sign off and during management rounds and is encouraged. Availability of parvez eyes camera also discussed
- COVID-19: Visitation policy, modifications related to COVID-19, ever changing guidelines were discussed
Mom was given the opportunity to ask questions throughout and open invitation to call if any questions come as they absorb all the information given so far.
Face to Face Time
Total [id number] Time (in Minutes): 30 min
Attending Railroad Crossing Protection Maintainer: Omayra Jackson MD
Railroad Crossing Protection Maintainer
[2023-08-21] MEDS: LR 1000 IV ×2 (14:25→15:49)
[2023-08-21 15:13] LABS: ALT (SGPT) 18 U/L (0-35); AST (SGOT) 22 U/L (14-36); Albumin 3.5 g/dl (3.5-5.0); Alkaline Phosphatase 128 U/L (38-126); Blood Urea Nitrogen 8 mg/dl (7-17); Calcium 9.1 mg/dl (8.4-10.2); Carbon Dioxide 18 mmol/L (22-30); Chloride 109 mmol/L (98-107); Estimated Creatinine Clearance > 125 ml/min; Glucose 91 mg/dl (70-99); Potassium 4.4 mmol/L (3.5-5.1); Sodium 132 mmol/L (135-145); Total Bilirubin 0.2 mg/dl (0.2-1.3); Total Protein 6.8 g/dl (6.3-8.2); eGFR > 60.00
[2023-08-21 15:24] LABS: % Basophils 0.4 % (0-2); % Eosinophils 0.6 % (0-6); % Immature Granulocytes 1.1 % (0-0.5); % Lymphocytes 20.4 % (20.5-51.1); % Monocytes 5.6 % (1.7-9.3); % Neutrophils 71.9 % (42.2-75.2); Absolute Eosinophils 0.1 10^3/uL (0-0.7); Absolute Immature Granulocytes 0.1 10^3/uL (0-0.05); Absolute Lymphocytes 2.1 10^3/uL (1.2-3.4); Absolute Monocytes 0.6 10^3/uL (0.1-0.6); Absolute Neutrophils 7.4 10^3/uL (1.4-6.5); Hematocrit 34.7 % (37.0-47.0); Hemoglobin 11.7 g/dL (12.0-16.0); Mean Corp Hgb Conc. 33.7 g/dL (33.0-37.0); Mean Corpuscular Hgb 31.7 pg (27.0-31.0); Mean Platelet Volume 10.1 fL (7.4-10.4); Nucleated Red Blood Cells % 0 %; Platelet Count 275 10^3/uL (130-400); Red Blood Cell Count 3.69 10^6/uL (4.20-5.40); White Blood Cell Count 10.3 10^3/uL (4.8-10.8)
[2023-08-21 15:43] LABS: Protein/creatinine Ratio 0.3; Urine Protein 10 mg/dl
[2023-08-21] MEDS: TYLENOL 1000 MG PO (16:31)
[2023-08-21] MEDS: BICITRA 30 ML PO (16:32)
[2023-08-21] MEDS: ANCEF 10 IV (16:32)
[2023-08-21] MEDS: PITOCIN 30 UNITS/NSS 500 ML IV ×2 (17:13→21:16)
[2023-08-21 17:26] LABS: B.E. Cord ABG -2.1 mMOL/L; Cord ABG Comment CORD BLOOD; HCO3 Cord ABG 25.1 mmol/L; O2 Saturation % Cord ABG 38.3 %; PCO2 Cord ABG 51 mmHg; PO2 Cord ABG 20 mmHg
--- NOTE | 2023-08-21 17:42 | W.IMMPOSTOP ---
Surgical Immed Post Op Note
-
Primary Surgeon: Corry Gallagher DO
Assisting Surgeon: Rut HARRIS RN
Pre-op Diagnosis: IUP at 35+0wks, non-reassuring testing, CHTN, idiopathic proteinuria
Post-op Diagnosis: IUP at 35+0wks, non-reassuring testing, CHTN, idiopathic proteinuria
Procedure Performed: PLTCS
Anesthesia Type: Spinal
Specimen / Cultures: placenta, blood gases
Estimated Blood Loss: 500ml (QBL 195ml)
Complications: none
Operative Findings: normal-appearing uterus, tubes and ovaries; Cephalic male , Apgars 7/8, weight 2215gm. Clear amniotic fluid.
[2023-08-21] MEDS: TRANDATE 100 MG PO (20:15)
[2023-08-21] MEDS: TORADOL 15 MG IV (23:15)
[2023-08-22] MEDS: TORADOL 15 MG IV ×3 (04:56→17:10)
[2023-08-22 05:39] LABS: Hemoglobin 10.5 g/dL (12.0-16.0); Mean Corp Hgb Conc. 33.9 g/dL (33.0-37.0); Mean Corpuscular Hgb 32.2 pg (27.0-31.0); Mean Corpuscular Volume 95.1 fL (81.0-99.0); Mean Platelet Volume 9.8 fL (7.4-10.4); Platelet Count 224 10^3/uL (130-400); Red Blood Cell Count 3.26 10^6/uL (4.20-5.40); White Blood Cell Count 16.8 10^3/uL (4.8-10.8)
--- NOTE | 2023-08-22 07:36 | W.PN.ANS.POP ---
Anesthesia Post Operative
- Anesthesia Post Op Note
Vital Signs Stable-See Nursing Note: Yes
Airway Patent: Yes
Adequate Pain Control: Yes
Change in Mental Status: No
Current Postoperative Nausea & Vomiting: No
Anesthesia Complications: No
General Anesthetic Recall: No
Unplanned Admission: No
Post Op Hydration Adequate: Yes
[2023-08-22] MEDS: FEOSOL 325 MG PO (07:57)
[2023-08-22] MEDS: PRENATAL PLUS 1 TABLET PO (07:57)
[2023-08-22] MEDS: TRANDATE 100 MG PO ×2 (07:57→19:44)
[2023-08-22 14:25] LABS: Hepatitis B Surface Antigen Negative (Negative)
[2023-08-22 14:36] LABS: HIV Combo Negative (Negative)
[2023-08-22] MEDS: MYLICON 80 MG PO (14:36)
[2023-08-22] MEDS: SENOKOT-S 1 TABLET PO (14:38)
[2023-08-22 14:43] LABS: Hepatitis C Antibody Negative (Negative)
[2023-08-22] MEDS: TYLENOL 650 MG PO (19:52)
[2023-08-22] MEDS: MOTRIN 600 MG PO (22:50)
[2023-08-23] MEDS: SENOKOT-S 1 TABLET PO (03:33)
[2023-08-23] MEDS: TYLENOL 650 MG PO ×4 (03:33→23:33)
[2023-08-23] MEDS: MYLICON 80 MG PO ×2 (03:36→19:48)
[2023-08-23] MEDS: MOTRIN 600 MG PO ×3 (04:57→19:48)
[2023-08-23] MEDS: FEOSOL 325 MG PO (08:15)
[2023-08-23] MEDS: PRENATAL PLUS 1 TABLET PO (08:15)
[2023-08-23] MEDS: TRANDATE 100 MG PO ×2 (14:03→19:48)
[2023-08-23 14:41] LABS: Syphilis/T. pallidum Ab Reflex Negative (Negative)
[2023-08-24] MEDS: PRENATAL PLUS 1 TABLET PO (07:56)
[2023-08-24] MEDS: TRANDATE 100 MG PO (07:56)
[2023-08-24] MEDS: FEOSOL 325 MG PO (07:57)
[2023-08-24] MEDS: TYLENOL 650 MG PO ×2 (07:57→16:44)
[2023-08-24] MEDS: MOTRIN 600 MG PO ×2 (07:58→16:44)
[2023-08-24] MEDS: SENOKOT-S 1 TABLET PO (07:58)
--- NOTE | 2023-08-27 17:20 | W.DS.TRANS ---
DC Summary - High School Coach
-
Discharge Instructions:
Discharge Diagnosis/Procedures primary cs
Instructions:
Stand-Alone Forms: LDRP Delivery
Changes to Home Medications: No
Discharge Medications:
DC Medications w/original date entered in [employer]
vit no.133-ferrous fumarate 28 mg-folic acid 800 mcg tablet () 1 tab PO DAILY Supplement 10/18/22
magnesium 250 mg tablet 250 mg PO DAILY Supplement 05/31/23
labetalol 100 mg tablet 100 mg PO BID Blood Pressure 06/27/23
ibuprofen 600 mg tablet 600 mg PO Q6HPRN PRN cramps #90 tabs 08/24/23
Home Medication Changes
Pending Results: No
Additional Pending Results:
placenta pathology
Total time spent discharging patient (in min): 20
== END 2023-08-24 19:30 | disposition home or self-care (01) | DRG 788 ==
LOC: LDRP 14:07
PROVIDERS: Obstetrics & Gynecology; ADMITTING PHYSICIAN Obstetrics & Gynecology
PROC: 10D00Z1 Extraction of Products of Conception, Low, Open Approach (ICD-10-PCS; 2023-08-21)
DX: O36.8130 Decreased fetal movements, third trimester, not applicable or unspecified (principal); O76 Abnormality in fetal heart rate and rhythm complicating labor and delivery; Z3A.35 35 weeks gestation of pregnancy; Z37.0 Single live birth; O16.4 Unspecified maternal hypertension, complicating childbirth; O99.214 Obesity complicating childbirth; O12.14 Gestational proteinuria, complicating childbirth
CPT/HCPCS: 88307; 76818; 80053; 82570; 82803; 84156; 85025; 85027; 86780; 86803; 86850; 86900; 86901; 87070; 87340; 87389

== ENCOUNTER 2023-08-30 20:42 | Observation (INO) | payer OTHER, SELFPAY ==
[2023-08-30 20:48] VITALS: BP 150/76; BMI 33.3
[2023-08-30] MEDS: TYLENOL 1000 MG PO (21:21)
== END 2023-08-30 23:05 | disposition home or self-care (01) ==
LOC: LDRP 20:42
PROVIDERS: ADMITTING PHYSICIAN Obstetrics & Gynecology
DX: O10.03 Pre-existing essential hypertension complicating the puerperium (principal); R51.9 Headache, unspecified
CPT/HCPCS: G0378

== ENCOUNTER 2025-04-10 03:02 | Emergency (ER) | payer OTHER, SELFPAY ==
[2025-04-10 03:13] VITALS: BP 107/72
[2025-04-10 03:51] LABS: Hematocrit 38.7 % (37.0-47.0); Hemoglobin 13.0 g/dL (12.0-16.0); Mean Corp Hgb Conc. 33.6 g/dL (33.0-37.0); Mean Corpuscular Volume 90.0 fL (81.0-99.0); Nucleated Red Blood Cells % 0 %; Platelet Count 273 10^3/uL (130-400); Red Cell Dist. Width 12.2 % (11.5-14.5)
[2025-04-10 03:59] LABS: ALT (SGPT) 29 U/L (0-35); AST (SGOT) 29 U/L (14-36); Albumin 4.8 g/dl (3.5-5.0); Alkaline Phosphatase 76 U/L (38-126); Blood Urea Nitrogen 24 mg/dl (7-17); Calcium 9.4 mg/dl (8.4-10.2); Carbon Dioxide 24 mmol/L (22-30); Chloride 105 mmol/L (98-107); Glucose 100 mg/dl (70-99); Lipase 484 U/L (23-300); Potassium 3.9 mmol/L (3.5-5.1); Sodium 139 mmol/L (135-145); Total Protein 8.5 g/dl (6.3-8.2); eGFR > 60.00
[2025-04-10 04:18] LABS: Urine Character Clear (Clear)
[2025-04-10 05:31] LABS: Urine Squamous Cell >30 /LPF (Few)
[2025-04-10 05:37] LABS: Urine Red Blood Cell 26-30 /HPF (0-2)
== END 2025-04-10 04:11 | disposition left against medical advice (07) ==
LOC: EMR 03:02
PROVIDERS: EMERGENCY PHYSICIAN Emergency Medicine
DX: R10.10 Upper abdominal pain, unspecified (principal); Z53.21 Procedure and treatment not carried out due to patient leaving prior to being seen by health care provider
CPT/HCPCS: 80053; 81003; 81015; 83690; 85025